=== PATIENT | male | born 2000 | race Caucasian/White ===

== ENCOUNTER 2023-12-08 22:13 | Emergency (ER) | payer SELFPAY ==
[~2023-12-08] VITALS: Ht 170.2 cm; Wt 61.0 kg
[2023-12-08 22:21] VITALS: BP 138/64; PULSE 135; RESP 20; TEMP 98.4; O2SAT 98
== END 2023-12-08 22:30 | disposition left against medical advice (07) ==
LOC: ER 22:18
DX: R33.9 Retention of urine, unspecified (principal); Z53.21 Procedure and treatment not carried out due to patient leaving prior to being seen by health care provider